=== PATIENT | male | born 1990 | race Two or more races ===

== ENCOUNTER 2017-07-25 23:23 | Emergency (ER) | payer OTHER ==
[~2017-07-25] VITALS: Ht 172.7 cm; Wt 99.8 kg
[2017-07-26 00:18] VITALS: BP 130/79
[2017-07-26] MEDS ORDERED: KETOROLAC TROMETH 60MG/2ML VIAL IM ONE (02:15)
== END 2017-07-26 03:01 | disposition home or self-care (01) ==
LOC: ER 23:29
DX: S30.0XXA Contusion of lower back and pelvis, initial encounter (principal); E66.01 Morbid (severe) obesity due to excess calories; F17.210 Nicotine dependence, cigarettes, uncomplicated; Z68.33 Body mass index [BMI] 33.0-33.9, adult; W01.0XXA Fall on same level from slipping, tripping and stumbling without subsequent striking against object, initial encounter; Y93.89 Activity, other specified; Y92.89 Other specified places as the place of occurrence of the external cause; Y99.8 Other external cause status
CPT/HCPCS: 72100; 96372; 99284; J1885